=== PATIENT | male | born 1975 | race Caucasian/White ===

== ENCOUNTER 2022-12-20 18:48 | Emergency (ER) | payer OTHER, SELFPAY ==
[2022-12-20] VITALS (25 sets, daily range): BP systolic 121–136; BP diastolic 77–88; PULSE 61–75; RESP 5–25; TEMP 36.3; O2SAT 94–98; BMI 39.8
--- NOTE | 2022-12-20 19:00 | ECG_ITS ---
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
--- NOTE | 2022-12-20 19:22 | PC.NURSE ---
Pt presents to ER for shortness of breath with pain between his shoulders Pt has a hacking type cough which he states he always has this time of year Pt states he had pneumonia badly as a child and whenever there is moisture in the air he gets this couch Pt has a history of diabetes, CHF, and a current blood clot in the femoral area of the right leg Pt states befoore 10 months ago he had no health problems, he went to the doctor for bilateral lower leg swelling and soon became diagnosed with these conditions Pt states there is no swelling in his feet or ankles at this time and this is normal for him Pt states he is supposed to use a CPAP at night but has not used it in 3 weeks as it makes him feel like he was punched in the ribs when he wakes up
--- NOTE | 2022-12-20 19:25 | ED_ITS ---
HPI - SOB/Dyspnea General Chief Complaint: Shortness of Breath/Dyspnea Stated Complaint: Shortness of Breath Time Seen by Provider: 12/20/22 19:06 Source: patient Mode of arrival: walk-in Limitations: no limitations History of Present Illness HPI Narrative: This 47-year-old male with a history of congestive heart failure who is on Eliquis due to a long-standing blood clot in his right upper leg presents for evaluation of one and half weeks of cough which is deep and nonproductive as well as some shortness of breath. He denies any chest pain. Has not had a fever. He has taken several COVID 19 test at home that were negative. He has no lower extremity swelling. He denies any dizziness or syncope. He has no abdominal pain or back pain. He maintains compliance with his medications. He is not smoke. He states his symptoms started getting worse when he started using his CPAP machine recently. He also thinks the CPAP is giving him headaches. MD elicited complaint: shortness of breath and cough Related Data Home Medications Medication Instructions Recorded Confirmed apixaban 5 mg tablet (Eliquis) 5 mg PO Q12H 12/20/22 12/20/22 fenofibrate 160 mg tablet 160 mg PO DAILY 12/20/22 12/20/22 flecainide 150 mg tablet 150 mg PO Q12H 12/20/22 12/20/22 furosemide 20 mg tablet 20 mg PO DAILY 12/20/22 12/20/22 metformin 1,000 mg tablet 1,000 mg PO BID 12/20/22 12/20/22 Allergies Allergy/AdvReac Type Severity Reaction Status Date / Time No Known Drug Allergies Allergy Verified 12/20/22 18:57 Review of Systems ROS Status of ROS 10 or more systems reviewed and unremarkable except as noted in history and below [facility] Social History Smoking status: Never smoker Exam Narrative Exam Narrative: Nurses note and vital signs reviewed and patient is not hypoxic. He is afebrile with a normal blood pressure, normal pulse, he is nontoxic pulse ox 97 percent on room air General: Overweight male resting comfortable on the stretcher, he speaks without dyspnea, audible nasal congestion appreciated Skin: Warm, dry, no pallor noted. There is no rash noted. Head: Normocephalic, atraumatic Eye: Normal conjunctiva, no drainage, EOMI. PERRL Ears, Nose, Mouth, and Throat: oral mucosa is moist. Nares patent, Nasal congestion appreciated Neck: No JVD, supple Cardiovascular: Regular Rate and RhythmS1 and S2, no murmurs rubs or gallops appreciated Respiratory: Patient is in no distress, no accessory muscle use, lungs are clear to auscultation, no wheezing, rales or rhonchi Back: non-tender, no CVA tenderness bilaterally to percussion. GI: Normal bowel sounds, no tenderness to palpation, no masses appreciated. No rebound, guarding, or rigidity noted. Musculoskeletal: The patient has no evidence of calf tenderness, no pitting edema, symmetrical pulses noted bilaterally Neurological: A&O x4, normal speech Psychiatric: Cooperative Constitutional Vital Signs, click to edit/add: Last Vital Signs Temp 97.4 F L 12/20/22 18:53 Pulse 72 12/20/22 21:32 Resp 20 12/20/22 21:32 BP 126/84 12/20/22 21:01 Pulse Ox 96 12/20/22 21:32 O2 Del Method Room Air 12/20/22 21:32 Course Vital Signs Vital signs: Vital Signs Temperature 97.4 F L 12/20/22 18:53 Pulse Rate 75 12/20/22 18:53 Respiratory Rate 22 12/20/22 18:53 Blood Pressure 121/83 12/20/22 18:53 Pulse Oximetry 98 12/20/22 18:53 Oxygen Delivery Method Room Air 12/20/22 18:53 Temperature 97.4 F L 12/20/22 18:53 Pulse Rate 72 12/20/22 21:32 Respiratory Rate 20 12/20/22 21:32 Blood Pressure 126/84 12/20/22 21:01 Pulse Oximetry 96 12/20/22 21:32 Oxygen Delivery Method Room Air 12/20/22 21:32 MDM - SOB/Dyspnea MDM Narrative Medical decision making narrative: This 47-year-old male with a history of coronary artery disease and congestive heart failure as well as diabetes and obesity with sleep apnea presents for evaluation of one and a half weeks of dry cough with shortness of breath. He states the symptoms started after using his CPAP machine. He denies any chest pain. He has not had a fever. He has taken several COVID 19 tests at home and they have all been negative. The patient's lungs are clear. He has a normal set of vital signs and is not hypoxic. EKG done upon arrival was a sinus rhythm with a nonspecific interventricular conduction delay but no acute changes. Routine cardiac labs were ordered and are reviewed. He has a normal white count and hemoglobin. He has normal electrolytes. Troponin is normal, BNP is normal, d- dimer is normal. Two-view chest x-ray is negative for acute findings. Respiratory panel is positive for rhino/enterovirus. This was discussed with him and is likely the etiology of his symptoms. He was given a Duoneb with mild clinical improvement. He states that he has a nebulizer machine at home but hasnt used it for the URI symptoms he is currently having. He will be discharged home with Rx for Bromfed DM and VIRAL URI instructions. He states that he has medication for his nebulizer at home. Lab Data Labs: Lab Results 12/20/22 12/20/22 Range/Units 19:15 19:55 WBC 8.8 (4.0-11.0) 10^3/uL RBC 4.96 (4.70-6.10) 10^6/uL Hgb 13.7 L (14.0-18.0) g/dL Hct 41.7 L (42.0-54.0) % MCV 84.1 (80.0-94.0) fL MCH 27.6 (25.9-34.0) pg MCHC 32.9 (29.9-35.2) g/dL RDW 13.2 (11.0-15.0) % Plt Count 431 (150-450) 10^3/uL MPV 10.3 (9.5-13.5) fL Neut % (Auto) 54.7 (43.0-75.0) % Lymph % (Auto) 32.8 (20.5-60.0) % [place] % (Auto) 9.6 (1.7-12.0) % Eos % (Auto) 2.3 (0.9-7.0) % Baso % (Auto) 0.3 (0.2-2.0) % Neut # (Auto) 4.8 (1.4-6.5) 10^3/uL Lymph # (Auto) 2.9 (1.2-3.8) 10^3/uL [place] # (Auto) 0.8 (0.3-0.8) 10^3/uL Eos # (Auto) 0.2 (0.0-0.7) 10^3/uL Baso # (Auto) 0.0 (0.0-0.1) 10^3/uL Abs Immat Gran (auto) 0.03 (0.00-0.03) 10^3/uL Imm/Tot Granulo (auto) 0.3 (0.0-0.5) % D-Dimer <0.19 (<=0.59) mg/L FEU Sodium 141 (136-145) mmol/L Potassium 3.9 (3.5-5.1) mmol/L Chloride 106 (98-107) mmol/L Carbon Dioxide 27.4 (21.0-32.0) mmol/L Anion Gap 11.5 BUN 12.0 (7.0-18.0) mg/dL Creatinine 1.01 (0.70-1.30) mg/dL Est GFR ( Amer) >60 (>=60) Est GFR (Non-Af Amer) >60 (>=60) BUN/Creatinine Ratio 11.9 Glucose 94 (74-106) mg/dL Lactate 1.5 (0.4-2.0) mmol/L Calcium 8.2 L (8.5-10.1) mg/dL Total Bilirubin 0.2 (0.2-1.0) mg/dL AST 21 (15-37) U/L ALT 43 (16-63) U/L Alkaline Phosphatase 66 (46-116) U/L Troponin I High Sens 6.6 (4.0-76.1) pg/mL NT-Pro-B Natriuret Pep 117.0 (<=450.0) pg/mL Total Protein 7.0 (6.4-8.2) g/dL Albumin 3.4 (3.4-5.0) g/dL Globulin 3.6 g/dL Albumin/Globulin Ratio 0.9 Adenovirus (PCR) Not detected (NOT DETECTE) C. pneumoniae DNA (PCR) Not detected (NOT DETECTE) Coronavirus Type OC43 Not detected (NOT DETECTE) Coronavirus Type HKU1 Not detected (NOT DETECTE) Coronavirus Type 229E Not detected (NOT DETECTE) Coronavirus Type NL63 Not detected (NOT DETECTE) Human Metapneumovir PCR Not detected (NOT DETECTE) M. pneumoniae (PCR) Not detected (NOT DETECTE) Parainfluenza PCR Not detected (NOT DETECTE) Parainfluenza 2 (PCR) Not detected (NOT DETECTE) Parainfluenza 3 (PCR) Not detected (NOT DETECTE) Parainfluenza 4 (PCR) Not detected (NOT DETECTE) RSV (RT-PCR) Not detected (NOT DETECTE) Entero/Rhino (PCR) Detected A (NOT DETECTE) SARS-CoV-2 (PCR) Not detected (NOT DETECTE) Bordetella pertussis (PCR) Not detected (NOT DETECTE) B parapertussis DNA PCR Not detected (NOT DETECTE) Influenza Type A (PCR) Not detected (NOT DETECTE) Influenza Type B (PCR) Not detected (NOT DETECTE) ECG Data Attestation: I personally reviewed and interpreted this ECG as follows: (Sinus rhythm at 75 beats for minute, normal axis, normal intervals, no acute ST segment elevation or T-wave inversion) Discharge Plan Discharge Chief Complaint: Shortness of Breath/Dyspnea Clinical Impression: Viral upper respiratory tract infection with cough, Rhinovirus infection Patient Disposition: Home, Self-Care Time of Disposition Decision: 21:20 Condition: Good Prescriptions / Home Meds: No Action Eliquis 5 mg tablet 5 mg PO Q12H fenofibrate 160 mg tablet 160 mg PO DAILY flecainide 150 mg tablet 150 mg PO Q12H furosemide 20 mg tablet 20 mg PO DAILY metformin 1,000 mg tablet 1,000 mg PO BID Instructions: Upper Respiratory Infection (ED), Viral Syndrome (ED) Stand Alone Forms: Portal Instructions Referrals: Physician,Non-Staff, MD [Primary Care Provider] - 1 week Discharge Date/Time: 12/20/22 21:51
[2022-12-20 19:39] LABS: Basophils Percent Auto 0.3 % (0.2-2.0); Eosinophils Absolute Auto 0.2 10^3/uL (0.0-0.7); Eosinophils Percent Auto 2.3 % (0.9-7.0); Hematocrit 41.7 % (42.0-54.0); Hemoglobin 13.7 g/dL (14.0-18.0); Immature Granulocytes Abs Auto 0.03 10^3/uL (0.00-0.03); Immature Granulocytes Pct Auto 0.3 % (0.0-0.5); Lymphocytes Absolute Auto 2.9 10^3/uL (1.2-3.8); Lymphocytes Percent Auto 32.8 % (20.5-60.0); Mean Corpuscular HGB Conc 32.9 g/dL (29.9-35.2); Mean Corpuscular Hemoglobin 27.6 pg (25.9-34.0); Mean Corpuscular Volume 84.1 fL (80.0-94.0); Mean Platelet Volume 10.3 fL (9.5-13.5); Monocytes Absolute Auto 0.8 10^3/uL (0.3-0.8); Monocytes Percent Auto 9.6 % (1.7-12.0); Neutrophils Absolute Auto 4.8 10^3/uL (1.4-6.5); Neutrophils Percent Auto 54.7 % (43.0-75.0); Platelet Count 431 10^3/uL (150-450); Red Blood Count 4.96 10^6/uL (4.70-6.10); Red Cell Distribution Width 13.2 % (11.0-15.0); White Blood Count 8.8 10^3/uL (4.0-11.0)
[2022-12-20 19:49] LABS: D Dimer <0.19 mg/L FEU (<=0.59)
[2022-12-20 19:56] LABS: Lactate/Lactic Acid 1.5 mmol/L (0.4-2.0)
[2022-12-20 19:57] LABS: Alanine Aminotransferase 43 U/L (16-63); Albumin Globulin Ratio 0.9; Albumin Level 3.4 g/dL (3.4-5.0); Alkaline Phosphatase 66 U/L (46-116); Anion Gap 11.5; Aspartate Amino Transferase 21 U/L (15-37); BUN Creatinine Ratio 11.9; Bilirubin Total 0.2 mg/dL (0.2-1.0); Calcium 8.2 mg/dL (8.5-10.1); Carbon Dioxide 27.4 mmol/L (21.0-32.0); Chloride 106 mmol/L (98-107); Estimated GFR (African America >60 (>=60); Estimated GFR (Non-African Ame >60 (>=60); Globulin 3.6 g/dL; Glucose 94 mg/dL (74-106); Potassium 3.9 mmol/L (3.5-5.1); Sodium 141 mmol/L (136-145); Troponin I High Sensitivity 6.6 pg/mL (4.0-76.1)
[2022-12-20 20:01] LABS: Adenovirus NOT DETECTED (NOT DETECTE); Bordetella parapertussis NOT DETECTED (NOT DETECTE); Coronavirus 229E NOT DETECTED (NOT DETECTE); Coronavirus HKU1 NOT DETECTED (NOT DETECTE); Coronavirus NL63 NOT DETECTED (NOT DETECTE); Coronavirus OC43 NOT DETECTED (NOT DETECTE); Human Metapneumovirus NOT DETECTED (NOT DETECTE); Influenza A NOT DETECTED (NOT DETECTE); Influenza B NOT DETECTED (NOT DETECTE); Mycoplasma pneumoniae NOT DETECTED (NOT DETECTE); Parainfluenza Virus 1 NOT DETECTED (NOT DETECTE); Parainfluenza Virus 2 NOT DETECTED (NOT DETECTE); Parainfluenza Virus 3 NOT DETECTED (NOT DETECTE); Parainfluenza Virus 4 NOT DETECTED (NOT DETECTE); Respiratory Syncytial Virus NOT DETECTED (NOT DETECTE); SARS-CoV-2 NOT DETECTED (NOT DETECTE)
--- NOTE | 2022-12-20 20:02 | XR_ITS ---
[facility] [place] [id number] Patient Name: TERELL FISHER MRN: [id number] date: 1975 Sex: M Assigned Patient Location: ER Current Patient Location: ER Accession/Order Number: [id number] Exam Date: 12/20/2022 20:23 Report Date: 12/20/2022 20:43 At the request of: CLINT MARKER Procedure: XR chest 2V EXAMINATION: XR chest 2V, , 12/20/2022 8:23 PM EDT INDICATION: SOB HISTORY: Ordering Provider Reason for Exam: SOB Technologist Note: Additional: COMPARISON: Chest x-ray dated 08/10/2021. TECHNIQUE: Chest x-ray: Two views. FINDINGS: No pneumothorax, pleural effusion or focal airspace consolidation. Heart is normal in size. Bony thorax is unremarkable. XR/XR chest 2V IMPRESSION: No acute cardiopulmonary process. Electronically authenticated by: JOSE ANGEL DIEHL Date: 12/20/2022 20:43
[2022-12-20 20:58] LABS: Human Rhinovirus/Enterovirus DETECTED (NOT DETECTE)
[2022-12-20] MEDS: IPRATROPIUM/ALBUTEROL SULFATE 3 ML AMPUL.NEB IH (21:24)
[2022-12-20] MEDS: ACETAMINOPHEN 325 MG TABLET 650 MG PO (21:45)
== END 2022-12-20 21:51 | disposition home or self-care (01) ==
PROVIDERS: Emergency Provider Emergency Medicine
DX: R05.9 Cough, unspecified (principal); J06.9 Acute upper respiratory infection, unspecified; B97.89 Other viral agents as the cause of diseases classified elsewhere; I50.9 Heart failure, unspecified; Z79.01 Long term (current) use of anticoagulants; Z79.899 Other long term (current) drug therapy; Z86.718 Personal history of other venous thrombosis and embolism; Z20.822 Contact with and (suspected) exposure to COVID-19
CPT/HCPCS: 0202U; 36415; 71046; 80053; 83605; 83880; 84484; 85025; 85378; 93005; 94640; 99285